=== PATIENT | male | born 1960 | race Caucasian/White ===

== ENCOUNTER 2019-05-28 16:18 | Emergency (ER) | payer MEDICARE ==
[~2019-05-28 16:18] MED LIST: ISOVUE-370 76%-LOCM 1 ML ONE
[2019-05-28 17:53] LABS: Hemoglobin 17.4 g/dL (14.0-18.0); Mean Corpuscular HGB CONC 34.2 g/dL (32.0-36.0); Mean Corpuscular Hemoglobin 31.3 pg (27.0-31.0); Mean Corpuscular Volume 91.3 fL (78.0-98.0); Mean Platelet Volume 7.8 fL (7.4-10.4); Platelet Count 359 thou/uL (130-400); RBC Distribution Width 14.1 % (11.5-14.5); Red Blood Cell (RBC) Count 5.57 mill/uL (4.70-6.10); White Blood Cell (WBC) Count 22.8 thou/uL (4.8-10.8)
[2019-05-28] MEDS ORDERED: Morphine 4 MG/ML VIAL ONE (18:05)
[2019-05-28 18:10] LABS: Band 3 % (5-11); Eosinophils 1 % (0-10); Lymphocytes 4 % (21-51); MDiff Complete? YES; Monocytes 11 % (0-10); Neutrophil 81 % (42-75); Platelet Morphology Comment Appears Adequate
[2019-05-28 18:16] LABS: ALT (SGPT) 15 U/L (8-55); AST (SGOT) 13 U/L (5-34); Albumin 4.3 g/dL (3.5-5.0); Alkaline Phosphatase 73 U/L (40-150); Anion Gap 13 mmol/L (10-20); BUN (Urea Nitrogen) 12 mg/dL (8.4-25.7); Bilirubin, Total 0.8 mg/dL (0.2-1.2); Calc. Creatinine Clearance 0 mL/min (70-130); Calcium 10.3 mg/dL (7.8-10.44); Carbon Dioxide 24 mmol/L (22-29); Chloride 103 mmol/L (98-107); Estimated GFR-MDRD 63; Globulin 3.3 g/dL (2.4-3.5); Glucose 112 mg/dL (70-105); Potassium 4.4 mmol/L (3.5-5.1); Protein, Total 7.6 g/dL (6.0-8.3); Sodium 136 mmol/L (136-145)
--- NOTE | 2019-05-28 20:10 | CT ---
POST CONTRAST SOFT TISSUE NECK: History: Pain radiating up the ear and down the throat, onset one week ago. Facial swelling. Lip paresthesia. Swelling. Comparison: None. FINDINGS: Visualized brain parenchyma is unremarkable. Visualized orbits are unremarkable. Mild mucosal thickening of the ethmoid air cells. Small mucous retention cyst in both maxillary sinus es. Minimal opacification of the inferior right mastoid air cell. No obvious masses within the oral cavity. Limited evaluation by depth of amalgam artifact. Midline fa tty roof of the tongue is preserved. Maxilla is unremarkable. There is a dental caries involving the 11th tooth with periapical abscess. T he periapical abscess is near the left mandibular foramen. There is a small fluid collection adjacent to the mandible representing a 1 cm soft tissue abscess. There is also a small focus of fluid along the medial aspect of the mandible, the sublingual space, representing a 4 mm abscess. There is indura tion of the soft tissues overlying the left mandible. Phlegmonous change is noted. Symmetric attenuation of the submandibular and parotid glands. Symmetric attenuation of the sternocleidomastoid muscles. Thyroid gland is unremarkable. There are scattered nonspecific right soft tissue neck lymph nodes. A large right level 1 lymph node measuring 1.5 x 1.0 cm. Grossly the great vessels of the neck are patent. Cervical spine vertebral body height is maintained. No evidence of significant central canal stenosis . Mild degenerative change is noted at the C3-4 and moderate degenerative changes noted C4-5 level. V arying degrees of foraminal stenosis on the basis of degenerative change. Epiglottis has normal caliber. Larynx is unremarkable. Upper mediastinum is unremarkable. Nonspecific fluid in pericardial recess. Mild emphysematous change s in visualized lung parenchyma. IMPRESSION: 1. Dental caries involving the 11th and 12th tooth. There is titi apical abscess at the apex of the 1 1th tooth. The apex of the 11th tooth is near the left mandibular foramen, (V3 cranial nerve). There is a small soft tissue abscess near the small left soft tissue abscess. 2. Reactive lymph nodes and soft tissue swelling involving the left face as described above. 3. Hypodensity in the left sublingual space may represent a small second developing abscess. POS: PPP
[2019-05-28] MEDS ORDERED: Clindamycin/D5W 600 mg/50 ml Premix Bag ONE (20:31)
[2019-05-28] MEDS ORDERED: HYDROcodone/Acetaminophen 10/325 mg Tablet ONE (20:31)
[2019-05-28] MEDS ORDERED: Acetaminophen 500 MG TAB ONE (20:31)
[2019-05-28] MEDS ORDERED: Dexamethasone 10 MG/ML VIAL ONE (20:32)
== END 2019-05-28 21:46 | disposition home or self-care (01) ==
LOC: ERS 16:18
DX: K04.7 Periapical abscess without sinus (principal); K03.81 Cracked tooth; I10 Essential (primary) hypertension; N40.0 Benign prostatic hyperplasia without lower urinary tract symptoms; M19.90 Unspecified osteoarthritis, unspecified site; G40.909 Epilepsy, unspecified, not intractable, without status epilepticus; F17.210 Nicotine dependence, cigarettes, uncomplicated; Z79.899 Other long term (current) drug therapy
CPT/HCPCS: 36415; 70491; 80053; 85025; 96365; 96375; J1100; J2270; J3490; Q9966